=== PATIENT | female | born 1955 | race Caucasian/White ===

== ENCOUNTER → 2023-09-06 16:58 | Outpatient (CLI) | payer OTHER, SELFPAY | PROVIDERS: Visit Provider Nurse Practitioner Family | DX: R10.9 Unspecified abdominal pain (principal); R35.0 Frequency of micturition | CPT/HCPCS: 87086 ==

== ENCOUNTER → 2024-08-29 12:15 | Outpatient (CLI) | payer OTHER, SELFPAY ==
--- NOTE | 2024-08-29 12:18 | DI.CT.S_ITS ---
PROCEDURE: CT KIDNEY URETER BLADDER (KUB) INDICATIONS: RLQ PAIN TECHNIQUE: After the administration of oral contrast, 5 mm thick sections acquired from the diaphragms to the symphysis. 5 mm coronal and sagittal reformats were performed. For radiation dose reduction, the following was used: automated exposure control, adjustment of mA and/or kV according to patient size. COMPARISON: None. FINDINGS: Image quality: Diagnostic. Lower Chest: No significant findings be on several surgical clips lower left breast area.. ABDOMEN: Liver: No contour-deforming mass. Gallbladder: No radiopaque gallstones or wall thickening. Biliary ducts: No biliary dilation. Pancreas: No ductal dilation. Spleen: Size is within normal limits. Adrenal Glands: No adrenal nodules. Kidneys and Ureters: No hydronephrosis. No contour-deforming mass. Stomach and Bowel: Normal colonic caliber, without significant wall thickening. Peritoneum: No abnormal intraperitoneal fluid. No free air. Ventral Wall: No significant hernia. Abdominal Nodes: No retroperitoneal or mesenteric adenopathy by size criteria. Vessels: Aorta and inferior vena cava are normal in size. PELVIS: Pelvic Organs: Unremarkable. Bladder: Unremarkable. Pelvic Nodes: No enlarged lymph nodes. Miscellaneous: No inguinal hernias are seen. Sigmoid diverticulosis without acute diverticulitis. Bones: No aggressive osseous abnormality. IMPRESSION: Source of right lower quadrant pain is not identified. Source of clinically reported hematuria is not seen. No CT evidence of appendicitis. Dictated by: River Chavira M.D. on 08/29/2024 at 14:19 Approved by: River Chavira M.D. on 08/29/2024 at 14:22
== END ==
PROVIDERS: PCP Internal Medicine; Referring Provider Internal Medicine; Visit Provider Internal Medicine
DX: K57.30 Diverticulosis of large intestine without perforation or abscess without bleeding (principal); R10.31 Right lower quadrant pain
CPT/HCPCS: 74176

== ENCOUNTER → 2025-01-13 08:43 | Outpatient (CLI) | payer OTHER, SELFPAY ==
--- NOTE | 2025-01-13 08:44 | DI.MG.S_ITS ---
MM diagnostic mammo unilat RT, US breast RT limited: 01/13/2025 BI-RADS: 2 CLINICAL: 69-year old female for right diagnostic mammogram and right diagnostic breast ultrasound that is a recall from screening on 11/10/2024. No Tyrer-Cuzick risk score calculation due to the patient's personal history of breast cancer. Patient reports a history of left breast carcinoma diagnosed at age 48. Status-post left mastectomy with hormonal therapy. No first-degree family history of breast cancer. The patient reports testing negative for BRCA gene mutation. The patient had a prior right breast biopsy. PRIOR EXAMS 11/10/2024, 06/08/2022, 06/17/2019. MAMMOGRAPHY TECHNIQUE: 2D and 3D (tomosynthesis) digital mammographic views obtained, with additional images as needed for full coverage. Current study was also evaluated with a Computer Aided Detection (CAD) system. ULTRASOUND TECHNIQUE: Real-time gomez scale and color doppler imaging of the area of clinical interest was performed with image documentation. TARGETED Right Breast Ultrasound: Real-time ultrasound exam was performed focused to area of clinical and/or imaging concern. DENSITY Right: C. The breast is heterogeneously dense, which may obscure small masses. MAMMOGRAPHY FINDINGS Right (finding-1): Lower at 6:00, Anterior depth, measuring 0.8cm: Correlating with findings on screening mammogram there is a circumscribed, oval, equal- density mass present. ULTRASOUND FINDINGS Right (finding-1): Lower at 6:00, 3 cm from nipple, measuring 0.7 x 0.4 x 0.7 cm: Correlating with findings on mammogram, there is a cyst with thin septations. IMPRESSION: Right * No evidence of malignancy with benign findings. RECOMMENDATIONS Right * Annual screening mammography. COMMENTS: Findings and recommendations were conveyed to the patient during today's evaluation. OVERALL ASSESSMENT CATEGORY BI-RADS-2: Benign. The [employer] recommends annual screening mammography beginning at age 40 for women with average risk of breast cancer. ELECTRONICALLY SIGNED: Lillian Bianchi M.D. on 01/13/2025 at 09:48:18 AM PT Interpreting Station ID: [id number]
== END ==
PROVIDERS: PCP Internal Medicine; Referring Provider Internal Medicine; Visit Provider Internal Medicine
DX: R92.8 Other abnormal and inconclusive findings on diagnostic imaging of breast (principal); N60.01 Solitary cyst of right breast; R92.331 Mammographic heterogeneous density, right breast; Z85.3 Personal history of malignant neoplasm of breast; Z90.12 Acquired absence of left breast and nipple
CPT/HCPCS: 76642; 77065; G0279